=== PATIENT | male | born 1955 | race Hispanic/Latino ===

== ENCOUNTER → 2019-12-11 | Day surgery (SDC) | payer MEDICARE ==
[2019-12-06 11:38] LABS: BASOPHILS % 0.2 % (0.0-1.0); EOSINOPHILS # (AUTO) 1.1 (0.0-0.4); EOSINOPHILS % 12.5 % (0.0-6.0); HEMATOCRIT 43.8 % (38.2-49.6); HEMOGLOBIN 14.4 g/dL (14.0-18.0); LYMPHOCYTES # (AUTO) 1.5 (1.0-3.2); MEAN CORPUSCULAR HGB CONC 32.9 g/dL (31-35); MEAN CORPUSCULAR VOLUME 97.3 fL (81-99); MONOCYTES # (AUTO) 0.7 (0.2-0.8); MONOCYTES % 7.9 % (4.4-11.3); NEUTROPHILS # (AUTO) 5.2 (2.1-6.9); NEUTROPHILS % 61.2 % (38.7-80.0); PLATELET COUNT 224 x10e3/uL (140-360); RED CELL DISTRIBUTION WIDTH 13.8 % (11.7-14.4)
[2019-12-06 12:01] LABS: ALANINE AMINOTRANSFERASE 14 IU/L (0-55); ALBUMIN 3.7 g/dL (3.5-5.0); ALBUMIN/GLOBULIN RATIO 1.1 (0.8-2.0); ALKALINE PHOSPHATASE 80 IU/L (40-150); ANION GAP 14.1 mmol/L (8-16); BLOOD UREA NITROGEN 9 mg/dL (7-26); BUN/CREATININE RATIO 9 (6-25); CALCIUM 9.4 mg/dL (8.4-10.2); CARBON DIOXIDE 26 mmol/L (22-29); CHLORIDE 103 mmol/L (98-107); CREATININE, SERUM 1.03 mg/dL (0.72-1.25); EST GLOMERULAR FILTRATION RATE > 60 ML/MIN (60-); GLUCOSE 120 mg/dL (74-118); POTASSIUM 4.1 mmol/L (3.5-5.1); SODIUM 139 mmol/L (136-145)
[2019-12-11] VITALS (9 sets, daily range): BP systolic 78–100; BP diastolic 53–70
[~2019-12-11] VITALS: Ht 170.2 cm; Wt 102.5 kg
[~2019-12-11] MED LIST: ALPRAZOLAM 0.5 MG TAB ONE; ASPIR 8181 MG PO; DIPHENHYDRAMINE HCL 25 MG CAP ONE; ENTRESTO 49 MG1 EACH PO; FENTANYL CITRATE/PF 100MCG/2 ML INJ ONE; FISH OIL 1,0001 EAC6 PO; FUROSEMIDE40 MG PO; HEPARIN SOD/SOD CHLORIDE 2,000 ML ONE; IOPAMIDOL 300MG/ML 100 ML INFUS..BTL IV ONE; JANUVIA100 MG PO; LIDOCAINE HCL 2% LOCAL 20 ML VIAL ONE; LYRICA75 MG PO; METFORMIN HCL500 MG PO; METOPROLOL TART25 MG PO; MIDAZOLAM HCL 2 MG/2 ML VIAL ONE; NAPROXEN250 MG PO; NITROGLYCERIN0.4 MG SL; PANTOPRAZOLE SO40 MG PO; PRAVASTATIN SOD40 MG PO; SODIUM CHLORIDE 0.9% 1000ML 0 ML ONE; SODIUM CHLORIDE 0.9% 1000ML 1,000 ML ONE; SPIRONOLACTONE25 MG PO; VERAPAMIL HCL 2.5 MG/ML 2 ML VIAL ONE; VITAMIN D3 COM1 EACH PO; XARELTO20 MG PO
--- OUTSIDE RECORDS SUMMARY | 2019-12-11 07:34 | XMS REPORT ---
Author Author [facility] Address Unknown Phone Unavailable Care Team Providers Care Narcotics Agent Name Role Phone Cathryn FERRIS Unavailable Unavailable Fabian PEARCE Unavailable Unavailable Fabian SINGH Unavailable Unavailable RODNEY LADD Unavailable Unavailable Brody FINNEY Unavailable Unavailable CHANG PUCKETT Unavailable Unavailable Payers Payer Name Policy Type Policy Number Effective Date Expiration Date Problems This patient has no known problems. Allergies, Adverse Reactions, Alerts Allergy Name Allergy Type Status Severity Reaction(s) Onset Date Inactive Date Treating Clinician Comments No Known Allergies DA Active U 2019-01-05 00:00:00 No Known Allergies DA Active U 2016-11-01 00:00:00 Medications This patient has no known medications. Results Test Description Test Time Test Comments Text Results Atomic Results Result Comments CT ABDOMEN W 2019-10-14 09:58:00 [facility] [address] [address] Patient Name: ELISA CAGLE MR #: [id number] : 1955 Age/Sex: 64/M Req #: [id number] Adm Physician: Ordered by: DAVID CARTWRIGHT DO Report #: [id number] Location: ER Room/Bed: Procedure: [id number] CT/CT ABDOMEN W Exam Date: 10/14/19 Exam Time: 910 REPORT STATUS: Signed EXAMINATION: CT of the abdomen with contrast. TECHNIQUE: Spiral CT images of the abdomen were performed from the lung bases to the iliac crests after the intravenous administration of 100 cc of Isovue 370 and the oral administration of water. Coronal and sagittal reformatted images were obtained. COMPARISON: CT abdomen with contrast 09/19/2019 CLINICAL HISTORY:Status post cholecystectomy 2 days ago. Right-sided abdominal pain. DISCUSSION: LOWER THORAX:Please see CT chest performed same day for further detail. HEPATOBILIARY: Normal hepatic size and contour. Stable 7-8 mm fluid density simple cyst in hepatic segment V/6 (axial image 36). No other focal hepatic lesions No intra or extrahepatic biliary ductal dilation. GALLBLADDER: Postoperative changes of cholecystectomy, with clips noted in the gallbladder fossa. Makes gas/fluid attenuation in the gallbladder fossa likely represents Surgicel (axial image 28). Mild surrounding stranding. No well-defined enhancing fluid collections to suggest abscess. SPLEEN: No splenomegaly. PANCREAS: No focal masses or ductal dilatation. ADRENALS: No adrenal nodules. KIDNEYS/URETERS: No hydronephrosis, stones, or solid mass lesions. PERITONEUM/RETROPERITONEUM: Trace pneumoperitoneum in the left anterior abdomen (axial image 47). LYMPH NODES: No intra-abdominal or retroperitoneal adenopathy. VESSELS: The celiac trunk,superior and inferior mesenteric and bilateral renal arteries are patent The portal, superior mesenteric and splenic veins are patent. GI TRACT: No bowel dilation or evidence of obstruction. No pericolonic inflammatory changes. There is mild dilation of the appendix, which measures 9 mm in diameter, however, shows no wall thickening, abnormal enhancement and is air-filled in its entirety (axial image 43 and sagittal images 28-33). BONES AND SOFT TISSUE: No aggressive lytic lesions. Mild degenerative disc changes in the lumbosacral spine. IMPRESSION: 1. Status post cholecystectomy with expected postoperative changes. No evidence of abscess. 2. Trace pneumoperitoneum in the left anterior abdomen, postsurgical. Signed by: Dr. Gian Nash M.D. on 10/14/2019 10:06 AM Dictated By: GIAN NASH MD 1006 Transcribed By: CASEY on 10/14/19 1006 COPY TO: DAVID CARTWRIGHT DO CT CHEST W 2019-10-14 09:50:00 [facility] [address] [address] Patient Name: ELISA CAGLE MR #: [id number] : 1955 Age/Sex: 64/M Req #: [id number] Adm Physician: Ordered by: DAVID CARTWRIGHT DO Report #: [id number] Location: ER Room/Bed: Procedure: [id number] CT/CT CHEST W Exam Date: 10/14/19 Exam Time: 910 REPORT STATUS: Signed EXAMINATION: CT of the chest with contrast, PE protocol. TECHNIQUE: Spiral CT images of the chest were performed from the lung apices through the level of the adrenal glands after the IV administration of 100 cc of Isovue 370. Thin section reconstructions were obtained with special concentration on the pulmonary arteries. Coronal and sagittal reformatted images were performed. COMPARISON: <none> CLINICAL HISTORY:Right-sided abdominal pain. Shortness of breath. Status post cholecystectomy 2 days ago DISCUSSION: Suboptimal exam, due to acquisition during partial expiratory phase. Lungs: No filling defects are identified in the main, right or left pulmonary arteries to their segmental level to suggest pulmonary embolism. Decreased lung volumes and increased attenuation of the pulmonary parenchyma secondary to scan acquired during partial expiration. Linear opacities in bilateral lower lobes, likely reflect subsegmental atelectasis or scarring. Mild compressive atelectasis of the right lower lobe. No pulmonary nodules, masses or consolidation. Airways: Airways are clear, without endobronchial lesions. Pleura: Trace right pleural effusion. No pneumothorax. Heart and mediastinum: The thyroid is unremarkable. Heart size is normal. No pericardial effusion. Atherosclerotic calcification of the coronary arteries, particularly the LAD. Prominent mediastinal fat. Main pulmonary artery is normal in caliber. Aorta is nonaneurysmal. Lymph nodes: No mediastinal, hilar or axillary adenopathy. Abdomen: Please see CT abdomen performed same day for further detail. Bones and soft tissues: No acute aggressive lytic lesions. Degenerative disc changes in the thoracic spine. IMPRESSION: 1. Limited exam as described above. No CT evidence of pulmonary embolism to the segmental level, despite the limitations of the study. 2. Trace right pleural effusion and associated mild compressive atelectasis of the right lower lobe. Bibasilar subsegmental atelectasis or scarring. Signed by: Dr. Gian Nash M.D. on 10/14/2019 9:57 AM Dictated By: GIAN NASH MD 6 Transcribed By: CASEY on 10/14/19956 COPY TO: DAVID CARTWRIGHT DO CT ABDOMEN W 2019-09-19 12:33:00 [address] [address] Patient Name: ELISA CAGLE MR #: [id number] : 1955 Age/Sex: 64/M Req #: [id number] Adm Physician: Ordered by: FRANCES PEARCE MD Report #: [id number] Location: CT Room/Bed: Procedure: [id number] CT/CT ABDOMEN W Exam Date: 09/19/19 Exam Time: 1150 REPORT STATUS: Signed CT of the abdomen, with contrast, 09/19/2019. History: Upper abdominal pain. Comparison: Ultrasound 09/10/2019. Technique: Multidetector CT scanning of the abdomen was performed from the level of the lung bases to the iliac crests after intravenous and oral administration of contrast. Coronal and sagittal multiplanar reformations were obtained. RADIATION DOSE: Total DLP: 522 mGy*cm Dose modulation, iterative reconstruction, and/or weight based adjustment of the mA/kV was utilized to reduce the radiation dose to as low as reasonably achievable. Discussion: LUNG BASES: No visualized abnormalities. ABDOMEN: Small stones are noted within the gallbladder. The liver, biliary tree, spleen, pancreas, adrenal glands, and kidneys are normal. The hepatic vein, portal vein, and splenic vein are patent. The abdominal aorta is within normal limits for size. The stomach and visualized bowel are unremarkable. The appendix appears prominent but is air-filled without evidence of adjacent inflammation. There is no evidence of adenopathy or free fluid. BONES AND SOFT TISSUES: Degenerative changes are present throughout the lumbar spine without evidence of lytic or sclerotic lesion. IMPRESSION: Cholelithiasis. Otherwise unremarkable exam. Signed by: Champ Bowman on 09/19/2019 12:37 PM Dictated By: CHAMP BOWMAN MD 1237 Transcribed By: CASEY on 09/19/19 1237 COPY TO: FRANCES PEARCE MD GALLBLADDER 2019-09-10 02:11:00 [address] [address] Patient Name: ELISA CAGLE MR #: [id number] : 1955 Age/Sex: 64/M Req #: [id number] Adm Physician: Ordered by: ANGEL SINGH MD Report #: [id number] Location: ER Room/Bed: Procedure: [id number] US/US GALLBLADDER Exam Date: Exam Time: REPORT STATUS: Signed HISTORY: Right upper quadrant pain ruq pain TECHNIQUE: Selected images from limited abdominal ultrasound provided for INTERPRETATION: COMPARISON: CT chest 05/05/2018. FINDINGS: Pancreas: Poorly visualized due to bowel gas. Liver: Measures 16.0 cm in sagittal plane. The echotexture is increased. No mass in the visualized portions. Portal Vein: Measures 0.7 cm. Proper directional flow on spectral Doppler interrogation. Intrahepatic bile ducts: Normal Gallbladder: Present. Stone in the gallbladder neck measures 9 mm. No gallbladder wall thickening or pericholecystic fluid. Sonographic Briones sign is negative. CBD: 0.3 cm. Right Kidney: 11.3 cm in greatest length. The echotexture is normal. There is no evidence for mass. There is no collecting system dilatation or evidence of obstruction. No renal calculi evident. No adjacent free fluid or fluid collections. The aorta and IVC are poorly visualized due to bowel gas. There is no free fluid. IMPRESSION: Cholelithiasis. No sonographic evidence of acute cholecystitis. No biliary ductal dilatation. Steatosis. Signed by: Dr. Ciera Zeng MD on 09/10/2019 2:13 AM Dictated By: CIERA ZENG MD 2 Transcribed By: CASEY on 09/10/19212 COPY TO: ANGEL SINGH MD Stress Test - Treadmill ONLY 2019-08-23 14:18:00 [address] [address] Patient Name : ELISA CAGLE MR #: [id number] : 1955 Age/Sex: 64/M Adm Physician : MICHAEL FINNEY MD Admit Date : 08/08/19 Location : MED/SURG Room/Bed : [facility] REPORT: Myoview Stress Test DATE OF STUDY: 08/09/2019 19:07:00 Stress Test - Treadmill ONLY INDICATION: Chest pain. PROCEDURE: Rest/stress single isotope SPECT imaging with pharmacologic stress and gated SPECT imaging. PROCEDURE IN DETAIL: Pharmacologic stress testing was performed with regadenoson per protocol. The heart rate was 56 beats per minute at rest and increased to 92 beats per minute during the regadenoson infusion. The resting blood pressure was 113/71 mmHg and increased to 120/67 mmHg, which is a normal response. Resting EKG demonstrated sinus bradycardia. There were no ST-segment changes suggestive of myocardial ischemia. Myocardial perfusion imaging was performed at rest following the injection of 10.8 mCi of tetrofosmin. At peak pharmacologic effect, the patient was injected with 32.6 mCi of tetrofosmin. Gated post-stress tomographic imaging was performed. FINDINGS: The overall quality of study is fair. Left ventricular cavity is noted to be normal size on the rest and stress studies. SPECT images demonstrate a small severe perfusion defect at the apex at rest and stress in addition there is a medium-sized mild perfusion defect in the inferior wall at rest that is improved with stress. Gated SPECT imaging reveals apical akinesis. The left ventricular ejection fraction was calculated to be 48%. IMPRESSION: Myocardial perfusion imaging is abnormal. There is a small transmural scar at the apex and a small nontransmural scar in the inferior wall. Overall, left ventricular systolic function was abnormal with regional wall motion abnormalities as above. Tamara Blackburn MD ABS/NATHANIEL /[id number] Signature Date Dictated By: TAMARA BLACKBURN MD Transcribed By: NATHANIEL on 08/23/19 <Electronically signed by TAMARA BLACKBURN MD><<Signature on File>>09/09/19 9706 COPY TO: CHEST 2 VIEWS 2019-08-22 11:12:00 [address] [address] Patient Name: ELISA CAGLE MR #: [id number] : 1955 Age/Sex: 64/M Req #: [id number] Adm Physician: Ordered by: RODNEY LADD DPM Report #: [id number] Location: OR Room/Bed: Procedure: [id number] DX/CHEST 2 VIEWS Exam Date: Exam Time: REPORT STATUS: Signed EXAMINATION: CHEST 2 VIEWS INDICATION: Pre-operative COMPARISON: Chest Radiograph 08/08/2019 FINDINGS: LINES/TUBES:None LUNGS:The lungs are well-inflated. No focal consolidation or pulmonary edema. PLEURA:No pleural effusion or pneumothorax. MEDIASTINUM:The cardiomediastinal silhouette appears normal in size and shape. BONES/SOFT TISSUES:No acute osseous injury. ABDOMEN:No free air under the diaphragm. IMPRESSION: 1. No focal pneumonia or pulmonary edema. Signed by: Susanne Devlin MD on 08/22/2019 11:13 AM Dictated By: SUSANNE DEVLIN MD 1113 Transcribed By: CASEY on 08/22/19 1113 COPY TO: RODNEY LADD DPM CHEST SINGLE (PORTABLE) 2019-08-08 19:10:00 [address] [id number] Patient Name: ELISA CAGLE MR #: [id number] : 1955 Age/Sex: 64/M Req #: [id number] Adm Physician: Ordered by: TIEN ZHOU MD Report #: [id number] Location: ER Room/Bed: Procedure: [id number] DX/CHEST SINGLE (PORTABLE) Exam Date: 08/08/19 Exam Time: 183 REPORT STATUS: Signed EXAMINATION: CHEST SINGLE (PORTABLE) CO MPARISON: None INDICATION: Chest pain, history of ID ERMD ORDER Y DISCUSSION: Frontal view of the chest obtained at 1836 hours. HEART AND MEDIASTINUM: The cardiomediastinal silhouette is unremarkable. LINES: None. LUNGS: There is mild eventration of the right diaphragm with trace overlying atelectasis. The left lung is clear. No interstitial edema PLEURA: No pleural effusion or pneumothorax. BONES AND SOFT TISSUES: No focal osseous lesion. The soft tissues are normal. IMPRESSION: Mild right basilar atelectasis. Otherwise normal exam. Signed by: Dr. Ciera Zeng MD on 08/08/2019 7:12 PM Dictated By: CIERA ZENG MD 11 Transcribed By: CASEY on 08/08/191911 COPY TO: TIEN ZHOU MD - XR CHEST 1 V 2019-01-05 04:06:00 FAX: Lalito Rucker MD [phone] Ramona: B St: [facility] FAX: Josue Link NP [phone] Name: ELISA CAGLE [facility] : 1955 Age/S: 63/M [address] [facility] Unit #: [id number] Loc: [place] [address] Phys: Josue Link [employer] Acct: [id number] Dis Date: Status: REG ER PHONE #: [phone] Exam Date: 01/05/2019 0345 FAX #: [phone] Reason: CHEST PAIN EXAMS: CPT CODE: [id number] XR CHEST 1 V 43640 AFTER HOURS SERVICE ON: 01/05/2019 4:06 AM AP Portable Chest Location Code M12 HISTORY: CHEST PAIN FINDINGS: There are no infiltrates. There are no pleural effusions. There is no pneumothorax. Cardiac silhouette and mediastinum appear within normal limits. IMPRESSION: No active pulmonary findings. at 0406 Reported and signed by: Karyn Craig M.D. CC: Lalito Rucker MD; Josue Link NP Technologist: Candice Mitchell Trnscrd Date/Time/By: 01/05/2019 (0406) : By: [email or web address] Orig Print D/T: S: 01/05/2019 (0409) PAGE 1 Signed Report BASIC METABOLIC PANEL 2019-01-05 04:02:00 SODIUM (test code=NA) 133 mmol/L 136-145 POTASSIUM (test code=K) 5.1 mmol/L 3.5-5.1 CHLORIDE (test code=CL) 103.0 mmol/L 98-107 CARBON DIOXIDE (test code=CO2) 24.0 mmol/L 21-32 ANION GAP (test code=GAP) 11.1 10-20 GLUCOSE (test code=GLU) 174 mg/dL 74-106 BLOOD UREA NITROGEN (test code=BUN) 15 mg/dL 7-18 GLOMERULAR FILTRATION RATE (test code=GFR) > 60 mL/min >=60 Estimated GFR by using Modified MDRD formula.Chronic kidney disease is defined as either kidney damageor GFR <60 mL/min/1.73 m2 for >3 months. CREATININE (test code=CREAT) 0.90 mg/dL 0.7-1.3 BUN/CREATININE RATIO (test code=BUN/CREA) 15.9 10-20 CALCIUM (test code=CA) 8.4 mg/dL 8.5-10.1 [id number] 04:02:00* Test Item Value Reference Range Comments TROPONIN-I (test code=TROPI) <0.015 ng/mL 0-0.045 TROPONIN I [id number] 03:58:00* Test Item Value Reference Range Comments TROPONIN I RAPID (test code=TROPIRAP) 0.01 ng/mL <0.08 Please Note New Reference Range 0.00-0.079 ng/mL - Negative>or=0.08 ng/mL - Positive The use of serial sampling and testing protocol is arecommended practice.An elevated troponin level alone is often not sufficient fordiagnosis of myocardial infarction. Troponin results obtained by different assays may vary.Evaluation of the extent of myocardial damage based onincrease of troponin would be valid only if similarmethodology is used. CBC W/O [id number] 03:43:00* Test Item Value Reference Range Comments WHITE BLOOD CELL (test code=WBC) 10.7 K/mm3 4.5-12.5 RED BLOOD CELL (test code=RBC) 4.68 mill/mm3 4.0-5.8 HEMOGLOBIN (test code=HGB) 14.0 gram/dL 13.0-17.5 HEMATOCRIT (test code=HCT) 43.8 % 42.0-52.0 MEAN CELL VOLUME (test code=MCV) 93.6 fL 80-98 MEAN CELL HGB (test code=MCH) 29.9 picogram 27.0-33.0 MEAN CELL HGB CONCETRATION (test code=MCHC) 32.0 gram/dL 33.0-36.0 RED CELL DISTRIBUTION WIDTH (test code=RDW) 14.2 % 11.6-16.2 PLATELET COUNT (test code=PLT) 202 K/mm3 150-450 MEAN PLATELET VOLUME (test code=MPV) 9.6 fL 6.7-11.0 CBC W/O [id number] 03:41:00* Test Item Value Reference Range Comments WHITE BLOOD CELL (test code=WBC) K/mm3 4.5-12.5 RED BLOOD CELL (test code=RBC) mill/mm3 4.0-5.8 HEMOGLOBIN (test code=HGB) 14.0 gram/dL 13.0-17.5 HEMATOCRIT (test code=HCT) 43.8 % 42.0-52.0 MEAN CELL VOLUME (test code=MCV) fL 80-98 MEAN CELL HGB (test code=MCH) picogram 27.0-33.0 MEAN CELL HGB CONCETRATION (test code=MCHC) gram/dL 33.0-36.0 RED CELL DISTRIBUTION WIDTH (test code=RDW) % 11.6-16.2 PLATELET COUNT (test code=PLT) K/mm3 150-450 MEAN PLATELET VOLUME (test code=MPV) fL 6.7-11.0 BONE DXA DUAL [id number] 08:18:00 [place] [address] Patient Name: ELISA CAGLE MR #: [id number] : 1955 Age/Sex: 63/M Req #: [id number] Adm Physician: Ordered by: MICHAEL FINNEY MD Report #: [id number] Location: DX Room/Bed: Procedure: [id number] DX/BONE DXA DUAL ENERGY Exam Date: Exam Time: REPORT STATUS: Signed PRO CEDURE: BONE DXA DUAL ENERGY COMPARISON: None. INDICATIONS: OTHER SPECIFIED DISORDERS OF BONE DENSITY FINDINGS: Evaluation of the left hip and lumbar spine was performed utilizing DEXA Hologic bone densitome ter. The study is technically adequate. The patient does not have an y known previous non-traumatic fractures or other risk factors. Left h ip total bone mineral density: 1.168 gm/cm2, T-score is 0.9, Z-score is 1.3. Lumbar spine total bone mineral density: 1.225 gm/cm2, T-score is 1.2, Z-s core is 1.9. Impression: 1. Normal bone mineral density of the left hip, fracture risk is not increased. 2. Normal bone mineral density of the lumbar spine, fracture risk is not increased. The patient's fracture r isk is compared to an age-matched control. Medical evaluation for secondar y causes of low bone mineral density may be appropriate. Correlate clin ically for the necessity and timing of the next bone mineral density study. National [employer]opor[employer] Foundation recommendations: Initial therapy to reduce fracture risk in postmenopausal women with -BMD t-scores below -2 .0 by central DXA with no risk factors -BMD t-scores below -1.5 by central CXA with one or more risk factors (first deg relative with hip fracture, jesus or personalfracture, low body weight, smoking) -A prior vertebral or hi p fracture AACE n(Clinical Endocrinology) recommends treating the followin g: Postmenopausal women who have osteoporosis as diagnosed by fragility fractures or t-score -2.5 or below. Postmenopausal women who have risk fa ctors (including hx of hip fracture, low body weight, smoking, risk of fallin g, high bone turnover, advancing age) and borderline low BMD T-scores o f -1.5 or below Adequate intake of calcium (at least 1200mg/day) and vitam in D (400-800IU/day). Regular weight bearing and muscle-strengthening exerc ises Avoid smoking and excessive alcohol Freida Bautista Dictated by: Jonathan Toth D.O. on 07/25/2018 at 8:18 Electronica lly approved by: Jonathan Toth D.O. on 07/25/2018 at 8:18 Di ctated By: JONATHAN TOTH DO 7 COPY TO: MICHAEL FINNEY MD CT CHEST [id number] 18:58:00 [place] [address] Patient Name: ELISA CAGLE MR #: [id number] : 1955 Age/Sex: 63/M Req #: [id number] Adm Physician: CHANG PUCKETT MD Ordered by: MILANA SHEEHAN MD Report #: [id number] Location: MED/SURG Room/Bed: 100-1 Procedure: [id number] CT/CT CHEST W Exam Date: 05/05/18 Exam Time: 1814 R EPORT STATUS: Signed PROCEDURE: CT CHEST WITH CONTRAST COMPARISON: None . INDICATIONS: sob, pe, post surgery 2 days, history of blood clots TECHNI QUE: Axial CT images of the chest were obtained after the intravenous adminis tration of 100 cc of nonionic contrast. Coronal and sagittal reformations wer e made available for review. RADIATION DOSE: Total DLP: 584.98 mGy*cm E stimated effective dose: (DLP x 0.014 x size factor) mSv FINDINGS: P ulmonary arteries: Thin, linear filling defect in the proximal lower lobe bra nch of the right pulmonary artery. Small, nonocclusive filling defect in the proximal lower lobe branch of the left pulmonary artery. No filling defects i n the main pulmonary artery. Main pulmonary artery measures 2.8 cm in diamete r. Aorta: Normal in diameter. No evidence of dissection. Lungs: D iffusely hyperinflated. There is dependent subpleural ground glass attenuatio n suggestive of atelectasis. No consolidations or edema. No discrete mass. Pleura: No pleural effusion or pneumothorax. There is mild eventration of right diaphragm. Heart T Mediastinum: Prominent epicardial fat p ads. No pericardial effusion. Coronary artery calcifications are present. The esophagus is collapsed. Lymph nodes: No enlarged axillary, supraclavicular lymph nodes. No large mediastinal lymph nodes. Mildly prominent right hilar lymph node measures 8 mm. Upper abdomen: There is fatty atrophy of t he pancreas. Low attenuating lesion in the liver dome measures 3 mm, too smal l characterize. Portions of the gallbladder, spleen, adrenal glands coming kid neys are unremarkable. Musculoskeletal: No focal osseous lesions. So ft tissues are unremarkable. CONCLUSION: 1. Web i n a lower lobe branch of the right pulmonary artery and tiny nonocclusive collins ling defects in the lower lobe branch of the left pulmonary artery suggestive of chronic emboli. No acute embolus. 2. Pulmonary hyperinflation consist ent with COPD. No pulmonary infiltrates. Dictated by: Ciera Zeng M.D. on 05/05/2018 at 18:57 Electronically approved by: Ciera Zeng M.D. on 05/05/2018 at 18:58 Dictated By: CIERA ZENG MD 57 Transcribed B y: INFCE on 05/05/181857 COPY TO: MILANA SHEEHAN MD CHEST 2 VIEWS 2018-05-05 10:45:00 [place] [address] Patient Name: ELISA CAGLE MR #: [id number] : 1955 Age/Sex: 63/M Req #: [id number] Adm Physician: CHANG PUCKETT MD Ordered by: MILANA SHEEHAN MD Report #: [id number] Location: MED/SURG Room/Bed: [facility] Procedure: [id number] DX/CH EST 2 VIEWS Exam Date: 05/05/18 Exam Time: 0930 REPORT STATUS: Signed PROCEDURE: X-RAY CHEST, TWO VIEWS COMPARISON: 2011 INDICATIONS: SHORTNESS OF BREATH FINDINGS: LUNGS: No consol idations or edema. Right basilar atelectasis. PLEURA: No effusions or p neumothorax. HEART T MEDIASTINUM: The heart is within normal size-suarez its. Elevated right hemidiaphragm anteriorly secondary to focal eventration BONES T SOFT TISSUES: No acute findings. CONCLUSION: No acute thoracic abnormality. Jonathan Toth D.O. Dictated by: Jonathan Toth D.O. on 05/05/2018 at 10:45 Electronically approved by: Jonathan Toth D.O. on 05/05/2018 at 10:45 Dictated By: JONATHAN FOX DO 1045 Transcri bed By: HERB on 05/05/18 1045 COPY TO: MILANA SHEEHAN MD FOOT RIGHT AP [id number] 18:42:00 [place] [address] Patient Name: ELISA CAGLE MR #: [id number] : 1955 Age/Sex: 63/M Req #: [id number] Adm Physician: Ordered by: RUDDY EVANS DPM Report #: [id number] Location: OR Room/Bed: Procedure: [id number] DX/FOOT RIGHT AP LAT Exam Date: 05/03/18 Exam Time: 1814 REPORT STATUS: S igned PROCEDURE: X-RAY RIGHT FOOT, TWO VIEWS COMPARISON: None. INDICA TIONS: POST OP FINDINGS: Limited examination secondary to limited dogn ent mobility, hardware obscuring bone, and lack of clinical history. A P and lateral postoperative radiographs are demonstrated of the foot. The ank le is partially visualized. There is extensive external fixation hardware whi ch partially obscures visualization of bony structures. Surgical sutures over lie the medial and lateral ankle with associated subcutaneous gas and edema. Two partially threaded screws are seen transfixing the tibiotalar joint. Prio r screw tracts are seen involving the distal tibia, likely from hardware cheng los. Extensive sclerotic and lytic destructive changes are seen involving the distal tibia/proximal talus which may reflect trauma, infection, or post ope rative change. There is a post traumatic partially seen deformity of the dist al fibula. Alignment is otherwise maintained without evidence of other displaced fracture. There is diffuse osteopenia, which appears mottled in the foot, and may reflect disuse. Please refer to performing physician's notes for full details of this procedure. CONCLUSION: Post operat halle and traumatic changes of the foot and ankle as above. Dictated by : BROOK WYATT M.D. on 05/03/2018 at 18:42 Electronically approved by: CANDICE WYATT M.D. on 05/03/2018 at 18:42 Dictated By: BROOK WYATT MD 41 Transcribed By: HERB on 05/03/181841 COPY TO: RUDDY EVANS DPM
--- NOTE | 2019-12-11 10:37 | NUR ---
1037pm RECEIVING NOTE [employer]............................................................... Bedside report received from Nat VALDEZ. Identifierx2. Alert oriented and appropriate, PERRLA, respirations even and unlabored to room air. Pulses x4 extremities equal and strong. Pedal pulses PT/DP X4 . Cap fill brisk < 3 sec. Rt TR band approach no fix 11cc TR band down at 1145am Skin warm and dry integrity appears D/I IV 20g to XXX left hand. Presents healthy w/o s/s of infiltration or complaint. Abdomen soft and supple. pt offered toileting, denies need to urinate or defecate. No personal affects with patient. Family at bedside. Pt and family verbalizes understanding of POC. Currently w/o complaint of pain or need. ds/rn
--- NOTE | 2019-12-11 10:45 | NUR ---
1045a RADIAL COMPRESSION REMOVAL NOTE: Initial Cuff volume 11 cc 1145a -2cc Removed No hematoma/bleeding noted with normal neurovascular function. 12n am -4cc Removed No hematoma/ bleeding noted with normal neurovascular function. 1215am -5cc Removed No hematoma/bleeding noted with normal neurovascular function. Air removal completed. Stasis achieved sterile 2x2,Tegaderm, Coban dressing No hematoma, bleeding noted with normal neurovascular function. Wrist splint in place. Pt instructed on POC. Ds/Rn
--- NOTE | 2019-12-11 12:15 | NUR ---
1215pm [employer] DISCHARGE NURSING NOTE Pt meets DC criteria. Rt TR band site assessed for s/s of complication and presence of hematoma. Skin warm, dry, no discolor, and pulses present. IV removed from left hand. Distal tip appears intact. VS WNL. Pt denies pain, sob, or need at this time. Family at bedside. Review of discharge paperwork and follow up instructions. verbalized understanding. Pt to wheelchair and transported to front of hospital. Transferred to private vehicle under own strength w/o incident with DC paperwork in hand. - deann/allen
--- NOTE | 2019-12-11 13:42 | Operative Report ---
DATE OF PROCEDURE: 12/11/2019 SURGEON: Christiano Thompson MD INDICATIONS: Peripheral arterial disease, ulceration and claudication right lower extremity. PROCEDURES PERFORMED: 1. Abdominal aortogram. 2. Third-order catheter placement from the right radial artery to the right femoral artery. 3. Unilateral extremity angiogram. 4. Deployment of right wrist TR band. COMPLICATIONS: None. RECOMMENDATIONS: Staged intervention of the right anterior tibial artery via antegrade right common femoral artery approach. DESCRIPTION OF PROCEDURE: Access was obtained in the right radial artery. A 6-Faroese sheath was placed and advanced to the abdominal aorta and then to the right common femoral artery (third-order catheter placement). Abdominal aorta and iliacs were widely patent. Right femoral artery, popliteal artery is widely patent. Distal right anterior tibial artery was occluded with faint reconstitution of the right dorsalis pedis artery. No intervention at this point. Right wrist TR band applied. The patient discharged home to follow up with procedures as listed above. Christiano Thompson MD [facility]/MODL /[id number]
== END | disposition home or self-care (01) ==
LOC: CATH LAB 07:30
PROVIDERS: ATTEND Internal Medicine Interventional Cardiology
DX: I70.25 Atherosclerosis of native arteries of other extremities with ulceration (principal); L98.498 Non-pressure chronic ulcer of skin of other sites with other specified severity; Z01.812 Encounter for preprocedural laboratory examination; Z79.82 Long term (current) use of aspirin; Z79.84 Long term (current) use of oral hypoglycemic drugs; Z79.02 Long term (current) use of antithrombotics/antiplatelets
CPT/HCPCS: 36247; 36415; 75625; 75710; 80053; 85025; C1887 ×2; J2001; J2250; J3010; J7030; Q9967; 99152; 99153

== ENCOUNTER → 2019-12-21 | Day surgery (SDC) | payer MEDICARE ==
[2019-12-17 10:48] LABS: BASOPHILS # (AUTO) 0.1 (0.0-0.1); BASOPHILS % 0.6 % (0.0-1.0); EOSINOPHILS # (AUTO) 0.1 (0.0-0.4); EOSINOPHILS % 1.2 % (0.0-6.0); HEMATOCRIT 41.8 % (38.2-49.6); HEMOGLOBIN 14.2 g/dL (14.0-18.0); LYMPHOCYTES # (AUTO) 1.8 (1.0-3.2); LYMPHOCYTES % 22.2 % (18.0-39.1); MEAN CORPUSCULAR HEMOGLOBIN 32.3 pg (28-32); MEAN CORPUSCULAR VOLUME 95.2 fL (81-99); MONOCYTES # (AUTO) 0.7 (0.2-0.8); MONOCYTES % 8.3 % (4.4-11.3); NEUTROPHILS # (AUTO) 5.5 (2.1-6.9); NEUTROPHILS % 67.3 % (38.7-80.0); PLATELET COUNT 236 x10e3/uL (140-360); RED BLOOD COUNT 4.39 x10e6/uL (4.3-5.7); RED CELL DISTRIBUTION WIDTH 13.9 % (11.7-14.4)
[2019-12-17 11:02] LABS: ALANINE AMINOTRANSFERASE 13 IU/L (0-55); ALBUMIN 3.7 g/dL (3.5-5.0); ALBUMIN/GLOBULIN RATIO 1.1 (0.8-2.0); ALKALINE PHOSPHATASE 82 IU/L (40-150); ANION GAP 12.1 mmol/L (8-16); BLOOD UREA NITROGEN 11 mg/dL (7-26); BUN/CREATININE RATIO 11 (6-25); CALCIUM 9.6 mg/dL (8.4-10.2); CARBON DIOXIDE 28 mmol/L (22-29); CHLORIDE 102 mmol/L (98-107); CREATININE, SERUM 1.02 mg/dL (0.72-1.25); EST GLOMERULAR FILTRATION RATE > 60 ML/MIN (60-); GLUCOSE 130 mg/dL (74-118); POTASSIUM 5.1 mmol/L (3.5-5.1); SODIUM 137 mmol/L (136-145)
[2019-12-21] VITALS (16 sets, daily range): BP systolic 82–134; BP diastolic 42–93
[~2019-12-21] VITALS: Ht 170.2 cm; Wt 95.3 kg
[~2019-12-21] MED LIST changes: +HEPARIN SOD (PORCINE) 1000 UNIT/ML 30ML ONE; -IOPAMIDOL 300MG/ML 100 ML INFUS..BTL IV ONE; +IOPAMIDOL 300MG/ML 50ML INFUS..BTL IV ONE; +NITROGLYCERIN/D5W 200 MCG/ML 250 ML ONE; -SODIUM CHLORIDE 0.9% 1000ML 0 ML ONE; +SODIUM CHLORIDE 0.9% 1000ML 2,000 ML ONE; +SODIUM CHLORIDE 0.9% 50ML 50 ML ONE
--- NOTE | 2019-12-21 10:45 | NUR ---
8767f Pt in Rm #10, prepped for procedure. Alert oriented and appropriate, PERRLA, respirations even and unlabored to room air. Pulses x4 extremities equal and faint. Pedal pulses PT/DP weak dopplerx4 Cap fill brisk < 3 sec. bilateral feet semi cool and pale. Skin warm and dry integrity appears intact in general. IV 20G rt wrist started by Ludwig Garcia x1 stick and presents healthy w/o s/s of infiltration or complaint.Abdomen soft and supple. pt offered toileting, denies need to urinate or defecate. Personal affects with patient. Family at bedside. Nina at bedside [phone] Preop med s per Ludwig Garcia at 1110am .Bed in low position, call light at bedside,bed brakes on, with requested to ask for assistance to get up.ds/rn
--- NOTE | 2019-12-21 13:31 | NUR ---
1331p Received pt to room #9, Identiferx2 bedside report received from COURTNEY Fountain. Alert oriented and appropriate, PERRLA, respirations even and unlabored to room air. Pulses x4 extremities doppler. Pedal pulses PT/DPx4 Cap fill brisk < 3 sec. Rt Foot discolored and known old injury Rt femoral sheath in place. No gross issues pain,pallor able to respond to verbal stimuli. 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 Denies c/o Protamine reversal in progress and completes to 1400.Rt groin sheath intact. NO gross issues with hematoma or bleeding. Skin warm and dry integrity appears D/I IV 20g to rt hand presents healthy w/o s/s of infiltration or complaint. Abdomen soft and supple. pt offered toileting, denies need to urinate or defecate. No personal affects with patient. Family at bedside. Nina .Pt and family verbalizes understanding of POC. Currently w/o complaint of pain or need. ds/rn
--- NOTE | 2019-12-21 14:00 | NUR ---
1400p call Александр RN procedural RN for standby. Iv fluids remain open.1 1/2liters infused. Pressure applied by Stuffle air support control officer for 12minutes manual pressure and stasis achieved. (1414pm)Stat lock pressure dressing. Pedal pulses unchanged. BP remains 88systolic and open fluids continued [id number] 2liter total infused and rate decreased to 100cchr at 1430pm. Pt assisted with snack tray remain down till 6pm and dc papers prepared. ds/rn
--- NOTE | 2019-12-21 18:00 | NUR ---
1800----Discharge CCL NURSING NOTE Pt meets DC criteria. Rt groin assessed for s/s of complication and presence of hematoma. Skin warm, dry, no discolor, and pulses present. IV removed from rt hand Distal tip appears intact. VS WNL. Pt denies pain, sob, or need at this time. Family at bedside Review of discharge paperwork and follow up instructions. verbalized understanding. Pt to wheelchair and transported to front of hospital. Transferred to private vehicle under own strength w/o incident with DC paperwork in hand. - ds/rn
--- NOTE | 2019-12-23 16:49 | Operative Report ---
DATE OF PROCEDURE: 12/21/2019 SURGEON: Christiano Thompson MD INDICATION: Peripheral arterial disease. PROCEDURES PERFORMED: 1. Third-order catheter placement unilateral extremity angiogram of the right lower extremity. 2. Angioplasty of the right anterior tibial artery. 3. Angioplasty to the right posterior tibial artery. COMPLICATIONS: None. RECOMMENDATIONS: Dual antiplatelet therapy with resumption of anticoagulation. BLOOD LOSS: Minimal. DESCRIPTION OF PROCEDURE: Access obtained in the right femoral artery using ultrasound guidance. A 6-[place] sheath was placed. The patient received intravenous heparin for anticoagulation. Occlusion of the anterior tibial artery was noted. The catheter was extended to the dorsalis pedis artery. The wires were advanced into the anterior tibial and posterior tibial artery and concomitant angioplasty using 1.5 mm balloon was performed. Adequate religion of flow was noted. No complications. The patient received protamine for reversal of heparin effect. Sheath was removed. The patient was discharged home same day. Christiano Thompson MD K[facility]/MODL /[id number]
== END | disposition home or self-care (01) ==
LOC: CATH LAB 10:21
PROVIDERS: ATTEND Internal Medicine Interventional Cardiology
DX: I73.9 Peripheral vascular disease, unspecified (principal); I77.1 Stricture of artery; Z01.812 Encounter for preprocedural laboratory examination; Z79.02 Long term (current) use of antithrombotics/antiplatelets; Z79.82 Long term (current) use of aspirin; Z79.84 Long term (current) use of oral hypoglycemic drugs
CPT/HCPCS: 36415; 37228; 75710; 76937; 80053; 85025; C1766; C1769 ×6; C1887; J1644; J2001; J2250; J3010; J7030; Q9967; 36247; 37232; 99152; 99153

== ENCOUNTER → 2021-07-24 | Outpatient (CLI) | payer MEDICARE ==
[~2021-07-24] MED LIST changes: -ALPRAZOLAM 0.5 MG TAB ONE; -DIPHENHYDRAMINE HCL 25 MG CAP ONE; -FENTANYL CITRATE/PF 100MCG/2 ML INJ ONE; -HEPARIN SOD (PORCINE) 1000 UNIT/ML 30ML ONE; -HEPARIN SOD/SOD CHLORIDE 2,000 ML ONE; -IOPAMIDOL 300MG/ML 50ML INFUS..BTL IV ONE; -LIDOCAINE HCL 2% LOCAL 20 ML VIAL ONE; -MIDAZOLAM HCL 2 MG/2 ML VIAL ONE; -NITROGLYCERIN/D5W 200 MCG/ML 250 ML ONE; -SODIUM CHLORIDE 0.9% 1000ML 1,000 ML ONE; -SODIUM CHLORIDE 0.9% 1000ML 2,000 ML ONE; -SODIUM CHLORIDE 0.9% 50ML 50 ML ONE; -VERAPAMIL HCL 2.5 MG/ML 2 ML VIAL ONE
== END ==
LOC: RAD 10:01
PROVIDERS: ATTEND Nurse Practitioner Adult Health
DX: M25.552 Pain in left hip (principal); M25.551 Pain in right hip
CPT/HCPCS: 73521